=== PATIENT | female | born 1985 | race Caucasian/White ===

== ENCOUNTER 2019-03-06 19:47 | Emergency (ER) | payer OTHER ==
[~2019-03-06] VITALS: Ht 167.6 cm; Wt 54.4 kg
[2019-03-06 20:19] VITALS: BP 136/76
== END 2019-03-06 20:50 | disposition home or self-care (01) ==
LOC: ER 19:50
DX: J32.9 Chronic sinusitis, unspecified (principal); Z60.2 Problems related to living alone